=== PATIENT | female | born 1985 | race Caucasian/White ===

== ENCOUNTER 2017-10-07 23:45 | Emergency (ER) | payer OTHER ==
[~2017-10-07] VITALS: Ht 167.6 cm; Wt 72.4 kg
[~2017-10-07 23:45] MED LIST: COLACE100 MG PO; FEOSOL325 MG PO; K-DUR20 MEQ PO; MOTRIN800 MG PO; NATALCARE RX1 TABLE1 PO; NOHOMEMEDS; TYLENOL PO; ZANTAC150 MG PO; ~No Medications
[2017-10-08 00:43] LABS: ADD MIUA? YES; BILIRUBIN NEGATIVE; BLOOD MODERATE; COLOR STRAW ((YELLOW)); GLUCOSE (STRIP) NEGATIVE; KETONES NEGATIVE; LEUKOCYTES TRACE; NITRITE NEGATIVE; PROTEIN (STRIP) NEGATIVE; SPECIFIC GRAVITY 1.005 (1.000-1.030); UROBILINOGEN 0.2 MG/DL (0.2-1.0)
[2017-10-08 00:46] LABS: BACTERIA NONE SEEN /HPF; EPITHELIAL CELLS 1+ /HPF; MUCUS NONE SEEN /LPF; RED BLOOD CELLS 0-5 /HPF (0-5); WHITE BLOOD CELLS 0-5 /HPF (0-5)
[2017-10-08 01:02] LABS: INTERNAL CONTROL VALID? YES
[2017-10-08] MEDS ORDERED: NAPROSYN500 MG PO (01:58)
[2017-10-08 02:19] VITALS: BP 141/83
== END 2017-10-08 02:26 | disposition home or self-care (01) ==
LOC: EME 23:45
PROVIDERS: Physician Assistant
DX: R10.32 Left lower quadrant pain (principal); N83.202 Unspecified ovarian cyst, left side; R35.0 Frequency of micturition; R03.0 Elevated blood-pressure reading, without diagnosis of hypertension
CPT/HCPCS: 74176; 81003; 84703; 87086; 99281; 99284